=== PATIENT | female | born 2000 | race Two or more races ===

== ENCOUNTER 2020-01-26 10:45 | Emergency (ER) | payer SELFPAY ==
[~2020-01-26] VITALS: Ht 162.6 cm; Wt 86.3 kg
[~2020-01-26 10:45] MED LIST: ONDA4TAB7 PO; PROM25TA10 PO; QUET100T PO; TRAM50TA PO
[2020-01-26 11:20] VITALS: BP 136/76
--- NOTE | 2020-01-26 12:09 | RAD ---
KNEE RIGHT 4V History: Reason: pain injured in a slide / Spl. Instructions: / History: Technique: 4 views right knee. Comparison: None. Findings: Normal alignment. No fracture. No significant knee joint effusion. Impression: 1. No acute osseous abnormality. Electronically signed by: Hollis Hennessy DO (01/26/2020 12:07 PM) [facility]
[2020-01-26] MEDS ORDERED: NAPR-514 PO (12:41)
[2020-01-26] MEDS ORDERED: METH4TAB2 PO (12:41)
--- NOTE | 2020-01-26 12:41 | PHYS DOC ---
Past Medical History Past Medical History: Asthma, Kidney Stone, Ovarian Cyst Past Surgical History: Cholecystectomy, Tonsillectomy Smoking Status: Never Smoker Alcohol Use: None Drug Use: None General Adult EDM: Chief Complaint: KNEE INJURY HPI: HPI: Patient is a 19 year old female who presents to the ED today complaining of 7 out of 10 right knee pain that began yesterday after she fell down a slip and fall slide. Patient denies any loss of consciousness. She believes her knee buckled. States most of the pain is on the medial and lateral aspect of the kn ee. Denies anything specifically exacerbating or relieving the pain. She states she is able to ambulate. Review of Systems: Review of Systems: Constitutional: Denies fever or chills. [] Musculoskeletal: Reports right knee pain Integument: Denies rash. [] Neurologic: Denies headache, focal weakness or sensory changes. [] Psychiatric: Denies depression or anxiety. [] Heart Score: Risk Factors: Risk Factors: DM, Current or recent (<one month) smoker, HTN, HLP, family history of CAD, obesity. Risk Scores: Score 0 - 3: 2.5% MACE over next 6 weeks - Discharge Home Score 4 - 6: 20.3% MACE over next 6 weeks - Admit for Clinical Observation Score 7 - 10: 72.7% MACE over next 6 weeks - Early Invasive Strategies Allergies: Allergies: Allergies Coded Allergies Type Severity Reaction Last Updated Verified prochlorperazine Allergy Unknown TARDIVE DYSKINESIA 07/09/19 Yes Physical Exam: PE: Constitutional: Well developed, well nourished, no acute distress, non-toxic appearance. [] Skin: Warm, dry, no erythema, no rash. [] Back: No tenderness, no CVA tenderness. [] Extremities: Right knee with no obvious deformity, bruising noted on the medial aspect of the knee. Slight tenderness on palpation of the medial and lateral aspect of the knee with negative Valentina sign, negative Sreedhar sign, negative anterior posterior drawer sign. +2 right pedal pulse. Cap refill less than 2 seconds the right lower extremity. Sensation intact to the right lower extremity. Neurologic: Alert and oriented X 3, normal motor function, normal sensory function, no focal deficits noted. [] Psychologic: Affect normal, judgement normal, mood normal. [] Current Patient Data: Vital Signs: Vital Signs Date Time Temp Pulse Resp B/P (MAP) Pulse Ox O2 Delivery O2 Flow Rate FiO2 01/26/20 11:20 97.7 100 19 136/76 (96) 97 Room Air 97.7 EKG: EKG: [] Radiology/Procedures: Radiology/Procedures: []PROCEDURE: KNEE RIGHT 4V KNEE RIGHT 4V History: Reason: pain injured in a slide / Spl. Instructions: / History: Technique: 4 views right knee. Comparison: None. Findings: Normal alignment. No fracture. No significant knee joint effusion. Impression: 1. No acute osseous abnormality. Electronically signed by: Hollis Vasquez DO (01/26/2020 12:07 PM) [facility] DICTATED and SIGNED BY: HOLLIS VASQUEZ DO DATE: 01/26/20 1207 Course & Med Decision Making: Course & Med Decision Making Pertinent Labs and Imaging studies reviewed. (See chart for details) This is a 19-year-old female patient presenting to the ED today with right knee pain after an injury yesterday. Right knee x-rays interpreted by radiologist are negative for any acute findings. Rufino bandage recommended to the right knee. Ice elevation encouraged. Naproxen and Medrol Dosepak prescription sent to her pharmacy. Provided orthopedic doctor for follow-up. Annalise Disclaimer: Annalise Disclaimer: This electronic medical record was generated, in whole or in part, using a voice recognition dictation system. Departure Departure Impression: Primary Impression: Sprain of knee Qualified Codes: S83.91XA - Sprain of unspecified site of right knee, initial encounter Disposition: HOME, SELF-CARE Condition: STABLE Referrals: UNKNOWN PCP NAME (PCP) RIVERA THAYER II, MD follow up in 1 week Patient Instructions: Knee Sprain, [id number] Additional Instructions: Your right knee x-rays are negative for any acute findings, try to ice and elevate the extremity. You can wrap the knee with an Rufino bandage as tolerated. Follow-up with your primary care doctor or the provided orthopedic doctor in 1 to 2 weeks if symptoms persist. Scripts Methylprednisolone (MEDROL) 4 Mg Tab.ds.pk 1 PKG PO UD, #1 PKG Prov: MUTJAMESAANNALISE FIRST MATE 01/26/20 Naproxen (NAPROXEN) 500 Mg Tablet 1 TAB PO BID for pain for 30 Days, #60 TAB 0 Refills Prov: ANNALISE INFANTE APRN 01/26/20 Justicifation of Admission Dx: Justifications for Admission: Justification of Admission Dx: N/A ANNALISE INFANTE APRN Jan 26, 2020 12:41
== END 2020-01-26 13:00 | disposition home or self-care (01) ==
LOC: ER 10:45
DX: S83.8X1A Sprain of other specified parts of right knee, initial encounter (principal); R20.2 Paresthesia of skin; J45.909 Unspecified asthma, uncomplicated; Z87.442 Personal history of urinary calculi; Z90.49 Acquired absence of other specified parts of digestive tract; Z90.89 Acquired absence of other organs; W01.0XXA Fall on same level from slipping, tripping and stumbling without subsequent striking against object, initial encounter; Y93.89 Activity, other specified; Y92.89 Other specified places as the place of occurrence of the external cause; Y99.8 Other external cause status
CPT/HCPCS: 73564; 99284

== ENCOUNTER 2020-06-20 08:12 | Emergency (ER) | payer SELFPAY ==
[~2020-06-20] VITALS: Ht 165.1 cm; Wt 81.8 kg
[~2020-06-20 08:12] MED LIST changes: +METH4TAB2 PO; +NAPR-514 PO
[2020-06-20 08:29] LABS: BILIRUBIN,URINE NEGATIVE (NEG); CLARITY,URINE CLEAR; COLOR,URINE YELLOW; NITRITE,URINE NEGATIVE (NEG); PROTEIN,URINE NEGATIVE (NEG-TRACE)
--- NOTE | 2020-06-20 08:35 | PHYS DOC ---
Past Medical History Past Medical History: Asthma, Kidney Stone, Ovarian Cyst Past Surgical History: Appendectomy, Cholecystectomy, Tonsillectomy Smoking Status: Never Smoker Alcohol Use: None Drug Use: None General Adult EDM: Chief Complaint: ABDOMINAL PAIN HPI: HPI: Patient is a 19 year old female presents with epigastric pain that began last night. Patient describes pressure-like pain that is nonradiating and currently 10 out of 10 in nature located in epigastric area. Patient's had nausea vomiting but no fever, chills, cough. Patient's had episodes similar to this in the past and has had her gallbladder out as well as her appendix. Pain is worse with palpation. Review of Systems: Review of Systems: Constitutional: Denies fever or chills. [] Eyes: Denies change in visual acuity. [] HENT: Denies nasal congestion or sore throat. [] Respiratory: Denies cough or shortness of breath. [] Cardiovascular: Denies chest pain or edema. [] GI: Complains abdominal pain, nausea, vomiting : Denies dysuria. [] Musculoskeletal: Denies back pain or joint pain. [] Integument: Denies rash. [] Neurologic: Denies headache, focal weakness or sensory changes. [] Endocrine: Denies polyuria or polydipsia. [] Lymphatic: Denies swollen glands. [] Psychiatric: Denies depression or anxiety. [] Heart Score: Risk Factors: Risk Factors: DM, Current or recent (<one month) smoker, HTN, HLP, family history of CAD, obesity. Risk Scores: Score 0 - 3: 2.5% MACE over next 6 weeks - Discharge Home Score 4 - 6: 20.3% MACE over next 6 weeks - Admit for Clinical Observation Score 7 - 10: 72.7% MACE over next 6 weeks - Early Invasive Strategies Current Medications: Current Medications Dicyclomine HCl (Bentyl) 20 mg 1X ONCE IM Last administered on 06/20/20at 08:54; Start 06/20/20 at 08:45; Stop 06/20/20 at 08:46; Status DC Sodium Chloride 1,000 ml @ 1,000 mls/hr 1X ONCE IV Last administered on 06/20/20at 08:54; Start 06/20/20 at 08:45; Stop 06/20/20 at 09:44; Status DC Ondansetron HCl (Zofran) 4 mg 1X ONCE IVP Last administered on 06/20/20at 08:55; Start 06/20/20 at 08:45; Stop 06/20/20 at 08:46; Status DC Ketorolac Tromethamine (Toradol 15mg Vial) 15 mg 1X ONCE IVP Last administered on 06/20/20at 09:46; Start 06/20/20 at 09:45; Stop 06/20/20 at 09:46; Status DC Morphine Sulfate (Morphine Sulfate) 4 mg 1X ONCE IV ; Start 06/20/20 at 09:45; Stop 06/20/20 at 09:38; Status DC Active Scripts Active Medrol (Methylprednisolone) 4 Mg Tab.ds.pk 1 Pkg PO UD Naproxen 500 Mg Tablet 1 Tab PO BID 30 Days Promethazine Hcl 25 Mg Tablet 1 Tab PO PRN Q6HRS 20 Days Zofran (Ondansetron Hcl) 4 Mg Tablet 1 Tab PO PRN Q6HRS PRN 12 Days Oral Dissolving Tablets, please Quetiapine Fumarate 100 Mg Tablet 100 Mg PO HS 30 Days Current Medications Dicyclomine HCl (Bentyl) 20 mg 1X ONCE IM ; Start 06/20/20 at 08:45; Stop 06/20/20 at 08:46; Status DC Sodium Chloride 1,000 ml @ 1,000 mls/hr 1X ONCE IV ; Start 06/20/20 at 08:45; Stop 06/20/20 at 09:44 Ondansetron HCl (Zofran) 4 mg 1X ONCE IVP ; Start 06/20/20 at 08:45; Stop 06/20/20 at 08:46; Status DC Active Scripts Active Medrol (Methylprednisolone) 4 Mg Tab.ds.pk 1 Pkg PO UD Naproxen 500 Mg Tablet 1 Tab PO BID 30 Days Promethazine Hcl 25 Mg Tablet 1 Tab PO PRN Q6HRS 20 Days Zofran (Ondansetron Hcl) 4 Mg Tablet 1 Tab PO PRN Q6HRS PRN 12 Days Oral Dissolving Tablets, please Quetiapine Fumarate 100 Mg Tablet 100 Mg PO HS 30 Days Allergies: Allergies: Allergies Coded Allergies Type Severity Reaction Last Updated Verified prochlorperazine Allergy Unknown TARDIVE DYSKINESIA 07/09/19 Yes Physical Exam: PE: Constitutional: Well developed, well nourished, mild distress due to pain non- toxic appearance. [] HENT: Normocephalic, atraumatic, bilateral external ears normal, no trismus, nose normal. [] Eyes: PERRLA, EOMI, conjunctiva normal, no discharge. [] Neck: Normal range of motion, no tenderness, supple, no stridor. [] Cardiovascular:Heart rate regular rhythm, cap refill is brisk Lungs & Thorax: Bilateral breath sounds clear, no respiratory distress Abdomen:, soft, mild epigastric tenderness without guarding or rebound no masses, no pulsatile masses. [] Skin: Warm, dry, no erythema, no rash. [] Back: No tenderness, no CVA tenderness. [] Extremities: No tenderness, no cyanosis, no clubbing, ROM intact, no edema. [] Neurologic: Alert and oriented X 3, normal motor function, normal sensory function, no focal deficits noted. [] Psychologic: Affect normal, judgement normal, mood normal. [] Current Patient Data: Labs: Laboratory Tests Test 06/20/20 08:20 06/20/20 08:28 06/20/20 08:30 Urine Collection Type Void Urine Color Yellow Urine Clarity Clear Urine pH 6.0 Urine Specific Calcium >=1.030 Urine Protein Negative mg/dL Urine Glucose (UA) Negative mg/dL Urine Ketones (Stick) Negative mg/dL Urine Blood Negative Urine Nitrite Negative Urine Bilirubin Negative Urine Urobilinogen Dipstick 1.0 mg/dL Urine Leukocyte Esterase Negative Urine RBC 0 /HPF Urine WBC Occ /HPF Urine Squamous Epithelial Cells Many /LPF Urine Bacteria Few /HPF Urine Mucus Marked /LPF Bedside Urine HCG, Qualitative Hcg negative White Blood Count 9.3 x10^3/uL Red Blood Count 4.88 x10^6/uL Hemoglobin 15.8 g/dL Hematocrit 44.7 % Mean Corpuscular Volume 92 fL Mean Corpuscular Hemoglobin 32 pg Mean Corpuscular Hemoglobin Concent 35 g/dL Red Cell Distribution Width 11.9 % Platelet Count 286 x10^3/uL Neutrophils (%) (Auto) 53 % Lymphocytes (%) (Auto) 36 % Monocytes (%) (Auto) 7 % Eosinophils (%) (Auto) 3 % Basophils (%) (Auto) 1 % Neutrophils # (Auto) 4.9 x10^3/uL Lymphocytes # (Auto) 3.3 x10^3/uL Monocytes # (Auto) 0.6 x10^3/uL Eosinophils # (Auto) 0.3 x10^3/uL Basophils # (Auto) 0.1 x10^3/uL Maternal Serum HCG Beta Subunit < 1 mIU/mL Sodium Level 140 mmol/L Potassium Level 3.6 mmol/L Chloride Level 104 mmol/L Carbon Dioxide Level 22 mmol/L Anion Gap 14 Blood Urea Nitrogen 10 mg/dL Creatinine 0.7 mg/dL Estimated GFR (Cockcroft-Gault) 106.7 BUN/Creatinine Ratio 14 Glucose Level 93 mg/dL Calcium Level 9.3 mg/dL Total Bilirubin 0.3 mg/dL Aspartate Amino Transf (AST/SGOT) 21 U/L Alanine Aminotransferase (ALT/SGPT) 40 U/L Alkaline Phosphatase 93 U/L Total Protein 7.9 g/dL Albumin 4.0 g/dL Albumin/Globulin Ratio 1.0 Lipase 140 U/L Current Medications Medications (Trade) Dose Ordered Sig/Kayode Route PRN Reason Start Time Stop Time Status Last Admin Dose Admin Dicyclomine HCl (Bentyl) 20 mg 1X ONCE IM 06/20/20 08:45 06/20/20 08:46 DC 06/20/20 08:54 Sodium Chloride 1,000 ml @ 1,000 mls/hr 1X ONCE IV 06/20/20 08:45 06/20/20 09:44 DC 06/20/20 08:54 Ondansetron HCl (Zofran) 4 mg 1X ONCE IVP 06/20/20 08:45 06/20/20 08:46 DC 06/20/20 08:55 Ketorolac Tromethamine (Toradol 15mg Vial) 15 mg 1X ONCE IVP 06/20/20 09:45 06/20/20 09:46 DC 06/20/20 09:46 Morphine Sulfate (Morphine Sulfate) 4 mg 1X ONCE IV 06/20/20 09:45 06/20/20 09:38 DC Laboratory Tests Test 06/20/20 08:28 POC Urine HCG, Qualitative Hcg negative (Negative) Vital Signs: Vital Signs Date Time Temp Pulse Resp B/P (MAP) Pulse Ox O2 Delivery O2 Flow Rate FiO2 06/20/20 08:18 97.2 114 22 114/80 (91) 97 Room Air 97.2 EKG: EKG: [] Radiology/Procedures: Radiology/Procedures: [][facility] [address] [place] [address] IMAGING REPORT Signed PATIENT: LINDA HARRIS ACCOUNT: [id number] : 2000 LOCATION: ER AGE: 19 SEX: F EXAM STATUS: REG ER ORD. PHYSICIAN: TERRELL LAZO MD REASON: abd pain, left flank pain PROCEDURE: CT ABDOMEN PELVIS WO CONTRAST EXAM: Abdomen and pelvis CT without intravenous contrast. HISTORY: Pain. TECHNIQUE: Computed tomographic images of the abdomen and pelvis were obtained without intravenous contrast. Multiplanar reformatting was performed. *One or more of the following individualized dose reduction techniques were utilized for this examination: 1. Automated exposure control. 2. Adjustment of the mA and/or kV according to patient size. 3. Use of iterative reconstruction technique. COMPARISON: 07/08/2019. FINDINGS: Evaluation of the lower thorax is unremarkable. No hepatic lesion is seen. The gallbladder is surgically absent. The pancreas, spleen, adrenal glands and kidneys are unremarkable. The appendix is surgically absent. There is no bowel obstruction or abnormal bowel wall thickening. The urinary bladder and uterus are unremarkable. There are suspected physiologic ovarian follicles. There is physiologic trace pelvic free fluid. There is no lymphadenopathy. The aorta is normal in caliber. There is no suspicious osseous lesion. IMPRESSION: No convincing acute abdominal or pelvic finding. Electronically signed by: Bing Villanueva MD (06/20/2020 10:02 AM) [id number] DICTATED and SIGNED BY: BING VILLANUEVA MD DATE: 06/20/20 1002 Course & Med Decision Making: Course & Med Decision Making Pertinent Labs and Imaging studies reviewed. (See chart for details) [] Patient reassessed at 9:30 AM and is clinically unchanged. Patient now complains of left flank pain that radiates to the abdomen. Will order CT to rule out kidney stone. Patient will be medicated for her symptoms. Patient reassessed at 11 AM and her pain is almost in half. Patient's work-up is negative. Discussed with patient negative results of need for outpatient follow-up. Patient given referral to an FAMILY PRACTITIONER as she has been told she has endometriosis in the past. Dragon Disclaimer: Dragon Disclaimer: This electronic medical record was generated, in whole or in part, using a voice recognition dictation system. Departure Departure Impression: Primary Impression: Abdominal pain Disposition: 01 DC HOME SELF CARE/HOMELESS Condition: STABLE Referrals: UNKNOWN PCP NAME (PCP) JERSON MONTOYA Jr, MD 2-3 DAYS Patient Instructions: Abdominal Pain Additional Instructions: EMERGENCY DEPARTMENT GENERAL DISCHARGE INSTRUCTIONS THANK YOU for coming to [facility] Emergency Department (ED) today and trusting us with your care. We trust that you had a positive experience in our Emergency Department. If you wish to speak to the department Management you can contact the agriculture department chair at . YOUR FOLLOW UP INSTRUCTIONS ARE FOLLOWS: Do you have a private doctor? If you do not have a private doctor, please ask for a resource list of physicians or clinics that may be able to assist you with follow up care. The Emergency Physician has interpreted your x-rays. The X-ray specialist will also review them. If there is a change in the findings you will be notified in 48 hours when at all possible. A lab test or lab culture may have been done, your results will be reviewed and you will be notified if you need a change in treatment. ADDITIONAL INSTRUCTIONS AND INFORMATION Your care today has been supervised by a physician who is specially trained in emergency care. Many problems require more than one evaluation for a complete diagnosis and treatment. We recommend that you schedule your follow up appointment as recommended to ensure complete treatment of your illness or injury. If you are unable to obtain follow up care and continue to have a problem, or if your condition worsens we recommend that you return to the ED. We are not able to safely determine your condition over the phone nor are we able to give sound medical advice over the phone. For these safety reasons, if you call for medical advice we will ask you to come to the ED for further evaluation If you have any questions regarding these discharge instructions please call the ED at . SAFETY INFORMATION In the interest of safety, wellness, and injury prevention; we encourage you to wear your seatbelt, if you smoke; quit smoking, and we encourage your family to use protective helmet for bicycling and other sporting events that present an increased risk for head injury. IF YOUR SYMPTOMS WORSEN OR NEW SYMPTOMS DEVELOP, OR YOU HAVE CONCERNS ABOUT YOUR CONDITION; OR IF YOUR CONDITION WORSENS WHILE YOU ARE WAITING FOR YOUR FOLLOW UP APPOINTMENT; EITHER CONTACT YOUR PRIMARY CARE DOCTOR, THE PHYSICIAN WHOSE NAME AND NUMBER YOU WERE GIVEN, OR RETURN TO THE ED IMMEDIATELY. Scripts Ondansetron Hcl (ZOFRAN) 4 Mg Tablet 1 TAB PO Q6HRS for NAUSEA, #12 TAB Prov: TERRELL LAZO MD 06/20/20 TERRELL LAZO MD Jun 20, 2020 08:35
[2020-06-20 08:36] LABS: BACTERIA,URINE FEW /HPF (0-FEW); RBC,URINE 0 /HPF (0-2); WBC,URINE OCC /HPF (0-4)
[2020-06-20 08:44] LABS: BASO # 0.1 x10^3/uL (0.0-0.2); BASO % 1 % (0-3); EOS # 0.3 x10^3/uL (0.0-0.7); EOS % 3 % (0-3); HEMATOCRIT 44.7 % (36.0-47.0); HEMOGLOBIN 15.8 g/dL (12.0-15.5); LYMPH # 3.3 x10^3/uL (1.0-4.8); LYMPH % 36 % (24-48); MEAN CORPUSCULAR HEMOGLOBIN 32 pg (25-35); MEAN CORPUSCULAR HGB CONC 35 g/dL (31-37); MEAN CORPUSCULAR VOLUME 92 fL (79-100); MONO # 0.6 x10^3/uL (0.0-1.1); MONO % 7 % (0-9); NEUT # 4.9 x10^3/uL (1.8-7.7); NEUT % 53 % (31-73); PLATELET COUNT 286 x10^3/uL (140-400); RED BLOOD COUNT 4.88 x10^6/uL (3.50-5.40); RED CELL DISTRIBUTION WIDTH 11.9 % (11.5-14.5); WHITE BLOOD COUNT 9.3 x10^3/uL (4.0-11.0)
[2020-06-20] MEDS ORDERED: IV NORMAL SALINE 1000ML BAG 1,000 ML IV ONE (08:45)
[2020-06-20] MEDS ORDERED: DICYCLOMINE 20 MG/2 ML VIAL. IM ONE (08:45)
[2020-06-20] MEDS ORDERED: ONDANSETRON PF 4 MG/2 ML VIAL. IVP ONE (08:45)
[2020-06-20 09:00] LABS: CALCIUM 9.3 mg/dL (8.5-10.1); CREATININE 0.7 mg/dL (0.6-1.0); GFR 106.7; POTASSIUM 3.6 mmol/L (3.5-5.1)
[2020-06-20 09:04] LABS: TOTAL BILIRUBIN 0.3 mg/dL (0.2-1.0); TOTAL PROTEIN 7.9 g/dL (6.4-8.2)
[2020-06-20] MEDS ORDERED: MORPHINE SULFATE 4 MG/ML VIAL. IV ONE (09:45)
[2020-06-20] MEDS ORDERED: KETOROLAC 15 MG/ML VIAL. IVP ONE (09:45)
[2020-06-20 10:00] VITALS: BP 100/70
--- NOTE | 2020-06-20 10:05 | RAD ---
EXAM: Abdomen and pelvis CT without intravenous contrast. HISTORY: Pain. TECHNIQUE: Computed tomographic images of the abdomen and pelvis were obtained without intravenous contrast. Multiplanar reformatting was performed. *One or more of the following individualized dose reduction techniques were utilized for this examination: 1. Automated exposure control. 2. Adjustment of the mA and/or kV according to patient size. 3. Use of iterative reconstruction technique. COMPARISON: 07/08/2019. FINDINGS: Evaluation of the lower thorax is unremarkable. No hepatic lesion is seen. The gallbladder is surgically absent. The pancreas, spleen, adrenal glands and kidneys are unremarkable. The appendix is surgically absent. There is no bowel obstruction or abnormal bowel wall thickening. The urinary bladder and uterus are unremarkable. There are suspected physiologic ovarian follicles. There is physiologic trace pelvic free fluid. There is no lymphadenopathy. The aorta is normal in caliber. There is no suspicious osseous lesion. IMPRESSION: No convincing acute abdominal or pelvic finding. Electronically signed by: Bing Mcghee MD (06/20/2020 10:02 AM) [id number]
[2020-06-20] MEDS ORDERED: ONDA4TAB7 PO (11:10)
== END 2020-06-20 11:19 | disposition home or self-care (01) ==
LOC: ER 08:12
DX: R10.13 Epigastric pain (principal); R11.2 Nausea with vomiting, unspecified; J45.909 Unspecified asthma, uncomplicated; Z87.442 Personal history of urinary calculi; Z90.49 Acquired absence of other specified parts of digestive tract; Z90.89 Acquired absence of other organs; Z88.8 Allergy status to other drugs, medicaments and biological substances
CPT/HCPCS: 36415; 74176; 80053; 81001; 81025; 83690; 84702; 85025; 96361; 96372; 96374; 96375; 99284; J0500; J1885; J2405; J7030